=== PATIENT | male | born 1960 | race Caucasian/White ===

== ENCOUNTER 2020-10-27 20:53 | Outpatient (CLI) | payer SELFPAY | END 2020-10-27 20:54 | disposition home or self-care (01) | LOC: COV 20:53 | PROVIDERS: ATTEND Family Medicine | DX: M79.10 Myalgia, unspecified site (principal); R53.83 Other fatigue; R68.83 Chills (without fever); R43.8 Other disturbances of smell and taste; R11.2 Nausea with vomiting, unspecified; Z20.822 Contact with and (suspected) exposure to COVID-19 ==

== ENCOUNTER 2023-03-07 07:00 | Outpatient (CLI) | payer SELFPAY ==
--- NOTE | 2023-03-08 11:04 | XRAY Report ---
PROCEDURE: Chest 2 View X-Ray INDICATIONS: CHEST WALL PAIN TECHNIQUE: 2 views of the chest were acquired. COMPARISON: None. FINDINGS: Surgical changes and devices: None. Lungs and pleura: No pleural effusions or pneumothorax. Lungs are clear. Mediastinum: Mediastinal contours appear normal. Heart size is normal. Bones and chest wall: No suspicious bony lesions. Degenerative changes of the spine. Overlying soft tissues appear unremarkable. IMPRESSION: No acute cardiopulmonary process. No cause for patient's pain is identified, however evaluation of th e right scapula region is limited on chest x-ray. Reviewed by: Daniel Hercules MD on 03/08/2023 11:02 AM PDT Approved by: Daniel Hercules MD on 03/08/2023 11:02 AM PDT Station ID: [id number]
== END 2023-03-07 23:59 | disposition home or self-care (01) ==
LOC: DI.S 07:00
PROVIDERS: ATTEND Physician Assistant
DX: R07.89 Other chest pain (principal)